=== PATIENT | male | born 1985 | race African-American/Black ===

== ENCOUNTER 2020-08-18 17:43 | Emergency (ER) | payer SELFPAY ==
--- NOTE | ~2020-08-18 | CT_ITS ---
EXAMINATION: CT cervical spine wo con DATE: 08/18/2020 18:52 INDICATION: Neck pain and radiculopathy TECHNIQUE: Computed tomography (CT) of the cervical spine was performed without intravenous contrast. Automated exposure control and iterative reconstruction technique were employed. The dose-length pro duct was 388.78 mGy-cm. COMPARISON: None FINDINGS: Reversal of the normal cervical lordosis. Vertebral body heights are normal. No fracture. Moderate di sc height loss at C6-C7. Mild disc height loss at the remaining cervical levels. Nonspecific subcutan eous edema along the posterior midline of the neck. Visualized airway and apices of the lungs are kathy ar. The following disc levels are specifically discussed: C2-C3: There is no uncovertebral joint osteoarthritis. There is minimal left facet joint osteoarthrit is. There is no neural foraminal stenosis. There is no central canal stenosis. C3-C4: Disc is mildly bulging with likely left subarticular zone disc protrusion/extrusion. There is mild bilateral uncovertebral joint osteoarthritis. There is mild right and minimal left facet joint o steoarthritis. There is mild central canal stenosis with narrowing of the left lateral recess at the entrance of the left neural foramen. No other neural foraminal stenosis. C4-C5: Disc is mildly bulging, eccentric to the left. There is mild bilateral uncovertebral joint ost eoarthritis. There is minimal bilateral facet joint osteoarthritis. There is no neural foraminal sten osis. There is mild central canal stenosis. C5-C6: Disc is mildly bulging. There is mild bilateral uncovertebral joint osteoarthritis. There is n o facet joint osteoarthritis. There is no neural foraminal stenosis. There is mild central canal sten osis. C6-C7: Disc is mildly bulging. There is mild right and moderate left uncovertebral joint osteoarthrit is. There is mild right facet joint osteoarthritis. There is no neural foraminal stenosis. There is m ild central canal stenosis. C7-T1: The disc does not extend beyond the endplate margin. There is no uncovertebral joint osteoarth ritis. There is mild bilateral facet joint osteoarthritis. There is no neural foraminal stenosis. The re is no central canal stenosis. IMPRESSION: 1. Mild to moderate cervical spondylosis most notable for a likely left subarticular zone disc protru mario/extrusion at C3-C4 which moderately narrows the left lateral recess and mildly the central canal and left neural foramen. Assessment of the disks and soft tissue narrowing of the central canal neur al foramina is more limited with CT than MRI and could consider follow-up cervical spine MRI for more definitive determination as clinically indicated. Reviewed, dictated and finalized at location A. IMPRESSION: 1. Mild to moderate cervical spondylosis most notable for a likely left subarti cular zone disc protrusion/extrusion at C3-C4 which moderately narrows the left lateral recess and mildly the central canal and left neural foramen. Assessmen t of the disks and soft tissue narrowing of the central canal neural foramina i s more limited with CT than MRI and could consider follow-up cervical spine MRI for more definitive determination as clinically indicated.
[2020-08-18 17:45] VITALS: BP 147/99; PULSE 86; RESP 20; TEMP 36.6; O2SAT 100
[2020-08-18] MEDS: KETOROLAC (*BKC) 60 MG/2 ML VIAL IM (18:54)
--- NOTE | 2020-08-18 18:56 | ED.GENADULT ---
HPI - General Adult General Chief complaint: Extremity Injury, Upper Stated complaint: neck, shoulder pain Time Seen by Provider: 08/18/20 17:55 Source: patient and RN notes reviewed Mode of arrival: ambulatory Limitations: no limitations History of Present Illness HPI narrative: Patient is a 35-year-old male who presents to emergency department for evaluation of left paraspinal cervical discomfort radiating to the fingertips that has been present for 2 weeks denies injury or trauma no sharp stabbing pain nothing is made it better or worse patient has been taking ibuprofen with no improvement denies injury or trauma on arrival appears uncomfortable but not distressed. Related Data Allergies Allergy/AdvReac Type Severity Reaction Status Date / Time No Known Allergies Allergy Verified 08/18/20 17:48 Review of Systems Review of Systems: All systems reviewed & are unremarkable except as noted in HPI and below PMFSH Social History Social History (Updated 08/18/20 @ 18:56 by Berry Morataya PA-C) Smoking status: Never smoker Gender identity (if verbalized by the patient): Male Exam Narrative: Exam Narrative: GENERAL: Well-appearing, well-nourished, and in no acute distress. HEAD: Normocephalic, atraumatic. EYES: PERRLA and EOMI. ENT: Nares clear, no rhinorrhea or epistaxis. Mucous membranes moist. NECK: Supple. No adenopathy or masses. CHEST: Clear to auscultation. No respiratory distress. No wheezes rales or rhonchi HEART: Regular rate and rhythm. No murmur heard. Normal peripheral pulses. EXTREMITIES: Normal range of motion. No edema. Left paraspinal cervical tenderness no deformities no deformities in the upper thoracic paraspinal region aside from tenderness over the trapezius musculature SKIN: Warm, dry, no rash. NEURO: No focal deficits. Alert and oriented x3. Cranial nerves II through XII grossly intact. Motor and sensory intact and symmetrical in the extremities PSYCH: Normal mood and affect. Course Course Emergency Course: Patient presented with what sounds like cervical radiculopathy based on presentation and findings patient likely with bulging disc will follow with primary care and be treated medically in the meantime patient provided with reasons to return patient is afebrile nontoxic-appearing. Patient moves his extremities freely and without difficulty. Patient provided with follow-up resources Vital Signs Vital signs: Vital Signs Temperature 97.8 F 08/18/20 17:45 Pulse Rate 86 08/18/20 17:45 Respiratory Rate 20 08/18/20 17:45 Blood Pressure 147/99 H 08/18/20 17:45 Pulse Oximetry 100 08/18/20 17:45 Temperature 97.8 F 08/18/20 17:45 Pulse Rate 86 08/18/20 17:45 Respiratory Rate 20 08/18/20 17:45 Blood Pressure 147/99 H 08/18/20 17:45 Pulse Oximetry 100 08/18/20 17:45 Medical Decision Making MDM Narrative Medical decision making narrative: Patients injury or pain is consistent with musculoskeletal etiology. No signs of neurological or vascular compromise on exam. Compartments and tisues are soft without signs of compartment syndrome. Pain is felt appropriate for further evaluation on an outpatient basis. Vital Signs Vital Signs: Vital Signs Temperature 97.8 F 08/18/20 17:45 Pulse Rate 86 08/18/20 17:45 Respiratory Rate 20 08/18/20 17:45 Blood Pressure 147/99 H 08/18/20 17:45 Pulse Oximetry 100 08/18/20 17:45 Temperature 97.8 F 08/18/20 17:45 Pulse Rate 86 08/18/20 17:45 Respiratory Rate 20 08/18/20 17:45 Blood Pressure 147/99 H 08/18/20 17:45 Pulse Oximetry 100 08/18/20 17:45 Imaging Data Radiologist's impression: ITS Impressions Cervical Spine CT 08/18/20 18:57 IMPRESSION: 1. Mild to moderate cervical spondylosis most notable for a likely left subarticular zone disc protrusion/extrusion at C3-C4 which moderately narrows the left lateral recess and mildly the central canal and left neural foramen. Assessment of
--- NOTE | 2020-08-18 19:19 | PC.NURSE ---
Pt presents to ED with complaints of neck pain that radiates down left arm and to back. 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 Pt in chair and states that he is more comfortable in chair than on cart. Pt restless due to pain and currently rates it 10/10. Pt has no other complaints at this time and is advised to press call button for assistance.
--- NOTE | 2020-08-18 19:50 | PC.NURSE ---
EDPA presented to bedside to update pt on poc.
[2020-08-18 20:30] VITALS: BP 155/96; PULSE 84; RESP 20; TEMP 37.2; O2SAT 98
[2020-08-18 20:32] VITALS: BP 155/96; PULSE 84; RESP 20; TEMP 37.2; O2SAT 98
== END 2020-08-18 20:33 | disposition home or self-care (01) ==
PROVIDERS: Emergency Provider Emergency Medicine
DX: M54.12 Radiculopathy, cervical region (principal)
CPT/HCPCS: 72125; 96372; 99284; J1885